=== PATIENT | female | born 1965 | race African-American/Black ===

== ENCOUNTER 2016-03-27 14:16 | Observation (INO) | payer BC, OTHER ==
[~2016-03-27] VITALS: Ht 157.5 cm; Wt 69.0 kg
[~2016-03-27 14:16] MED LIST: ACIPHEX20 MG PO; ALDACTONE50 MG PO; ASPIR-TRIN325 M1 PO; ASPIRIN81 M1 PO; ATACAND16 MG PO; ATARAX10 MG PO; ATORVASTATIN CA40 MG PO; AVENTYL,PAMELOR10 MG PO; BENADRYL25 MG PO; BENLYSTA120 MG IV; BYSTOLIC10 MG PO; BYSTOLIC20 MG PO; CALCITRIOL0.25 MC1 PO; CALCITRIOL0.25 MCG PO; CARDIZEM CD180 MG PO; CARDIZEM CD240 MG PO; CARDURA4 MG PO; CARDURA8 MG PO; CATAPRES-TTS 11 EACH TD; CATAPRES-TTS 21 EACH TD; CATAPRES-TTS 31 EACH TD; CATAPRES0.1 MG PO; CATAPRES0.2 MG PO; CLONIDINE HCL0.1 MG PO; COLCHICINE,COL0.6 MG PO; COLCRYS0.6 MG PO; CYMBALTA30 MG PO; DELTASONE2.5 MG PO; DELTASONE5 MG PO; DIFLUCAN150 MG PO; DILTIAZEM 24HR240 M1 PO; DIOVAN320 MG PO; DIPHEN25 M1 PO; DURAGESIC100 MCG TD; DURAGESIC12 MCG TD; DURAGESIC25 MCG TD; GABAPENTIN600 MG PO; HYDROXYCHLOROQ200 MG PO; IMDUR60 MG PO; ISOSORBIDE MONO60 MG PO; K-DUR20 MEQ PO; K-Dur PO; KEFLEX500 MG PO; LIDODERM 5% P1 PATCH TD; LO-DOSE ASPIRIN81 M1 PO; LOVENOX30 MG/0.3 SC; LOW DOSE ASPIRI81 M2 PO; METOPROLOL TAR100 MG PO; MICARDIS HCT1 TABLE2 PO; NEURONTIN100 MG PO; NEURONTIN600 MG PO; NIZORAL 2% CREA15 GM TP; NORTRIPTYLINE H10 MG PO; NORVASC10 MG PO; OMEPRAZOLE20 M2 PO; OPANA ER5 MG PO; OPANA IR5 MG PO; OXYCODONE HCL5 MG PO; OXYCONTIN10 MG PO; PERCOCET 5/31 TABLET PO; PLAQUENIL200 MG PO; PREDNISONE20 MG PO; PREDNISONE5 MG PO; RAYOS5 MG PO; ROCALTROL0.25 MCG PO; Rocaltrol PO; SENNA-C8.6 MG PO; SENOKOT,SENN1 TABLET PO; SPIRONOLACTONE25 MG PO; SPIRONOLACTONE50 MG PO; TOPROL XL100 MG PO; TRANSDERM-NITR0.1 MG PO; TRANSDERM-NITR0.4 MG TD; VITAMIN D-32000 UNI2 PO; VITAMIN D1000 UNIT PO; VITAMIN D2000 UNIT PO; VITAMIN E200 UNI5 PO; ZEBETA5 MG PO
[2016-03-27 15:41] LABS: HEMATOCRIT 32.7 % (36.0-46.0); MCH 25.9 PG (29.0-34.0); MCHC 31.5 G/DL (30.0-36.0); MCV 82.4 FL (83-99); MEAN PLAT.VOLUME 10.1 uM^3 (9.5-12.4); PLATELET COUNT 281 K/uL (156-360); RBC DIS.WIDTH-CV 14.6 % (11.8-14.6); RBC DIS.WIDTH-SD 42.7 % (39-53); RED BLOOD COUNT 3.97 M/uL (3.80-5.20); WHITE BLOOD COUNT 2.7 K/uL (4.1-10.2)
[2016-03-27 15:53] LABS: CHLORIDE 111 mEq/L (99-109); POTASSIUM 4.4 mEq/L (3.7-5.4); SODIUM 145 mEq/L (136-147)
[2016-03-27 15:55] LABS: GLUCOSE 90 mg/dL (70-99)
[2016-03-27 15:56] LABS: ANION GAP 10 MEQ/L (2-14)
[2016-03-27] MEDS ORDERED: AUGMENTIN875 MG PO (15:56)
[2016-03-27 15:57] LABS: TOTAL BILIRUBIN 0.3 mg/dL (0.0-1.0)
[2016-03-27 15:58] LABS: ALKALINE PHOSPHATASE 87 IU/L (3-129)
[2016-03-27 15:59] LABS: GFR ESTIMATE (CALCULATED) 26 mL/min/
[2016-03-27 16:00] LABS: UREA NITROGEN (BUN) 26 mg/dL (9-23)
[2016-03-27 16:02] LABS: LIPASE 85 U/L (1.0-51.0)
[2016-03-27 16:08] LABS: QUANTITATIVE HCG < 4.0 MIU/ML
[2016-03-27 16:41] LABS: ADD MIUA? NO; BILIRUBIN NEGATIVE; BLOOD NEGATIVE; COLOR YELLOW ((YELLOW)); GLUCOSE (STRIP) NEGATIVE; KETONES NEGATIVE; LEUKOCYTES NEGATIVE; NITRITE NEGATIVE; PH, URINE 6.5 (5-8); PROTEIN (STRIP) 30; SPECIFIC GRAVITY 1.017 (1.000-1.030); UCUL ADDED? NO; UROBILINOGEN 0.2 MG/DL (0.2-1.0)
[2016-03-28 01:53] VITALS: BP 186/99
[2016-03-28 04:29] VITALS: BP 118/78
[2016-03-28 05:13] LABS: INTERNAL CONTROL VALID? YES
[2016-03-28 05:46] LABS: C DIFF TOXIN NEGATIVE (NEGATIVE)
[2016-03-28 05:47] LABS: PROBE CHECK PASS; SPECIMEN PROCESSING CONTROL PASS
[2016-03-28 07:02] LABS: ALKALINE PHOSPHATASE 72 IU/L (3-129); ANION GAP 10 MEQ/L (2-14); CHLORIDE 109 MEQ/L (99-109); GFR ESTIMATE (CALCULATED) 29 mL/min/; GLUCOSE 132 mg/dL (70-99); POTASSIUM 4.4 MEQ/L (3.7-5.4); SAMPLE HEMOLYSIS CHECK 0; SAMPLE ICTERIC CHECK 0; SAMPLE LIPEMIA CHECK 0; SODIUM 143 MEQ/L (136-147); TOTAL BILIRUBIN 0.3 MG/DL (0.0-1.0); UREA NITROGEN (BUN) 22 mg/dL (9-23)
[2016-03-28 07:07] LABS: HEMATOCRIT 29.1 % (36.0-46.0); MCH 25.3 PG (29.0-34.0); MCHC 30.6 G/DL (30.0-36.0); MCV 82.7 FL (83-99); MEAN PLAT.VOLUME 10.2 uM^3 (9.5-12.4); PLATELET COUNT 248 K/uL (156-360); RBC DIS.WIDTH-CV 14.9 % (11.8-14.6); RBC DIS.WIDTH-SD 45.4 % (39-53); RED BLOOD COUNT 3.52 M/uL (3.80-5.20); WHITE BLOOD COUNT 3.6 K/uL (4.1-10.2)
[2016-03-28 08:36] VITALS: BP 122/81
[2016-03-28 12:05] VITALS: BP 138/86
== END 2016-03-28 18:15 | disposition home or self-care (01) ==
LOC: EME 14:16 → EDOF 22:14 → 4EAST 22:14
PROVIDERS: Internal Medicine
DX: K52.9 Noninfective gastroenteritis and colitis, unspecified (principal); R10.9 Unspecified abdominal pain; I12.9 Hypertensive chronic kidney disease with stage 1 through stage 4 chronic kidney disease, or unspecified chronic kidney disease; N18.3 Chronic kidney disease, stage 3 (moderate); I25.10 Atherosclerotic heart disease of native coronary artery without angina pectoris; Z98.61 Coronary angioplasty status; M32.9 Systemic lupus erythematosus, unspecified; G89.29 Other chronic pain; Z96.652 Presence of left artificial knee joint; K21.9 Gastro-esophageal reflux disease without esophagitis; Z79.82 Long term (current) use of aspirin; Z79.52 Long term (current) use of systemic steroids; Z82.49 Family history of ischemic heart disease and other diseases of the circulatory system
CPT/HCPCS: 74176; 80053; 81003; 83605; 83630; 83690; 84702; 85027; 87040; 87081; 87177; 87493; 87651 90; 99281; 99285; G0378; G8978 GP CH; G8979 GP CH; G8980 GP CH; G8987 GO CH; G8988 GO CH; G8989 GO CH; J1644; J2405; J7030; J7120; J7512; S0028